=== PATIENT | male | born 1980 | race Caucasian/White ===

== ENCOUNTER 2017-04-18 09:28 | Emergency (ER) | payer BC ==
[2017-04-18 09:31] VITALS: BP 137/84; PULSE 74; RESP 18; TEMP 97.6
--- NOTE | 2017-04-18 10:01 | ED ---
General Adult HPI - General Chief complaint: Wound/Laceration Stated complaint: R hand laceration Time Seen by Provider: 04/18/17 09:44 Source: patient, RN notes reviewed Mode of arrival: ambulatory Limitations: no limitations - History of Present Illness Initial comments: 36-year-old male with no significant past medical history presents with laceration on the radial surface of his proximal thumb right hand. Patient was pushing trash down into his trash can at home, cut his thumb on a broken Boris ornament. Denies any other injury. Patient's tetanus is up-to-date. Patient is on certain if there is any retained glass. Sensation intact. Patient is able to move his thumb in all directions. - Related Data Home Medications Medication Instructions Recorded Confirmed No Known Home Medications [No 04/18/17 04/18/17 Known Home Medications] Allergies Allergy/AdvReac Type Severity Reaction Status Date / Time No Known Allergies Allergy Verified 04/18/17 09:42 Review of Systems ROS Statement: Those systems with pertinent positive or pertinent negative responses have been documented in the HPI. ROS Other: All systems not noted in ROS Statement are negative. Past Medical History Past Medical History: No Reported History History of Any Multi-Drug Resistant Organisms: None Reported Past Surgical History: No Surgical Hx Reported Additional Past Surgical History / Comment(s): Vasectomy Past Psychological History: No Psychological Hx Reported Smoking Status: Never smoker Past Alcohol Use History: None Reported Past Drug Use History: None Reported General Exam Limitations: no limitations General appearance: alert, in no apparent distress Head exam: Present: atraumatic, normocephalic Eye exam: Present: normal appearance, PERRL ENT exam: Present: normal exam Respiratory exam: Present: normal lung sounds bilaterally. Absent: respiratory distress Cardiovascular Exam: Present: regular rate, normal rhythm Extremities exam: Present: other (2 cm laceration at the base of the thumb, right hand, radial surface. No underlying tendon injury. No active bleeding.) Course Vital Signs 04/18/17 09:30 Temperature 97.6 F Pulse Rate 74 Respiratory 18 Rate Blood Pressure 137/84 O2 Sat by Pulse 97 Oximetry Procedures - Laceration Laceration #1 Consent Obtained: verbal consent Time Out Performed: Yes Indication: laceration Site: hand Description: linear, clean Depth: simple, single layer Anesthetic Used: lidocaine 1% Pre-repair: wound explored, irrigated extensively, deep structures intact Type of Sutures: nylon Size of Sutures: 5-0 Number of Sutures: 3 Technique: simple, interrupted Patient Tolerated Procedure: well Medical Decision Making - Medical Decision Making 36-year-old male presenting with 2 cm laceration at the base of the right thumb. X-rays obtained, negative for foreign body. Wound is cleansed, anesthetized, and irrigated with tap water. Deep structures appear to be intact. Hemostasis is achieved. No visible foreign bodies on examination. Laceration is repaired with simple interrupted 5-0 nylon suture, quantity 3. Patient tolerates well. He is instructed to observe for signs of infection. He will return for suture removal either to the emergency department or his primary care physician in approximately 10 days. Disposition Clinical Impression: Laceration Disposition: HOME SELF-CARE Condition: Good Instructions: Laceration (ED) Additional Instructions: Return to emergency department or primary care physician for suture removal in 10 days, return sooner with signs of infection. Referrals: None,Stated [Primary Care Provider] - 1-2 days Time of Disposition: 10:30
--- NOTE | 2017-04-18 10:12 | XR ---
EXAMINATION TYPE: XR hand complete RT DATE OF EXAM: 04/18/2017 CLINICAL HISTORY: pain TECHNIQUE: Frontal, lateral and oblique images of the right hand are obtained. COMPARISON: None. FINDINGS: There is no acute fracture/dislocation evident. The joint spaces appear within normal limi ts. The overlying soft tissue appears unremarkable. No radiopaque foreign body identified at this ti me. IMPRESSION: There is no acute fracture or dislocation ICD 10 NO FRACTURE, INITIAL EVALUATION
== END 2017-04-18 10:36 | disposition home or self-care (01) ==
LOC: EC 09:28
DX: S61.011A Laceration without foreign body of right thumb without damage to nail, initial encounter (principal); W26.8XXA Contact with other sharp object(s), not elsewhere classified, initial encounter
CPT/HCPCS: 12001; 99283